=== PATIENT | female | born 1955 | race Caucasian/White ===

== ENCOUNTER → 2024-05-11 13:37 | Outpatient (REF) | payer MEDICARE, BC, SELFPAY | LOC: HWWDC 13:37 | PROVIDERS: ATTENDING PHYSICIAN Internal Medicine | DX: Z12.31 Encounter for screening mammogram for malignant neoplasm of breast (principal) | CPT/HCPCS: 77063; 77067 ==

== ENCOUNTER → 2025-07-12 09:03 | Outpatient (REF) | payer MEDICARE, BC, SELFPAY | LOC: HWWDC 09:03 | PROVIDERS: ATTENDING PHYSICIAN Internal Medicine | DX: Z12.31 Encounter for screening mammogram for malignant neoplasm of breast (principal) | CPT/HCPCS: 77063; 77067 ==

== ENCOUNTER 2025-08-17 20:45 | Emergency (ER) | payer MEDICARE, BC, SELFPAY ==
[2025-08-17 20:58] VITALS: BP 103/69
[2025-08-17 21:31] LABS: Urine Character Cloudy (Clear)
[2025-08-17 21:35] LABS: Hematocrit 41.6 % (37.0-47.0); Hemoglobin 13.1 g/dL (12.0-16.0); Mean Corp Hgb Conc. 31.5 g/dL (33.0-37.0); Mean Corpuscular Volume 89.7 fL (81.0-99.0); Nucleated Red Blood Cells % 0 %; Platelet Count 201 10^3/uL (130-400); Red Cell Dist. Width 13.3 % (11.5-14.5)
[2025-08-17 21:41] LABS: Urine Squamous Cell 0-2 /LPF (Few)
[2025-08-17 21:42] LABS: Urine White Cell 16-20 /HPF (0-5)
[2025-08-17 21:51] LABS: ALT (SGPT) 116 U/L (0-35); AST (SGOT) 191 U/L (14-36); Albumin 4.5 g/dl (3.5-5.0); Alkaline Phosphatase 88 U/L (38-126); Blood Urea Nitrogen 23 mg/dl (7-17); Calcium 9.8 mg/dl (8.4-10.2); Carbon Dioxide 28 mmol/L (22-30); Chloride 107 mmol/L (98-107); Glucose 115 mg/dl (70-99); Lipase 126 U/L (23-300); Potassium 4.4 mmol/L (3.5-5.1); Sodium 141 mmol/L (135-145); Total Protein 7.2 g/dl (6.3-8.2); eGFR 44.79
[2025-08-18 00:46] VITALS: BP 114/77
[2025-08-18 01:05] VITALS: BP 112/80
[2025-08-18] MEDS: NSS 1000 IV (01:07)
--- NOTE | 2025-08-18 01:20 | ED.GENMED ---
History of Present Illness
General
Chief Complaint: Abdominal Pain
Time Seen by Provider: 08/18/25 00:53
Nursing documentation reviewed up to this point in time: agreed with
History of Present Illness
History of Present Illness:
70-year-old female presents to the ER for evaluation of right-sided abdominal pain which started earlier today. She notes it has been intermittent in nature. It does not radiate to her back. Patient states that she felt strange earlier and was
weak and tripped while at a theater production in [place] this afternoon. She also states that she has been intermittently been feeling hot and cold throughout the day today. No vomiting. She reports decreased appetite since starting Ozempic
which she reports she was placed on due to decreased kidney function. She did not take any pain relievers. She does have a prior history of kidney stone but states that when she had pain from kidney stones in the past it felt very much like a
labor, not similar to today's discomfort at all. She denies any recent antibiotic usage. She denies dysuria. She reports that her urine is chronically dark if she admits that she does not drink enough water on a daily basis. She denies chest
pain. No cough or cold symptoms. No syncope. Patient has no pain at time of evaluation.
Past History
Past History
ED Past Medical History: None
ED Past Surgical History: None
Social History
Tobacco: Non-smoker
Review of Systems
Review of Systems
Allergies reviewed?: Yes
Phy Exam
Physical Exam
Physical Exam:
Patient is awake, alert, appears in no acute distress, head is NCAT, PERRL, EOMI mucous membranes moist, conjunctiva pink, heart regular rate and rhythm without murmurs or ectopy, lungs are clear to auscultation without wheezes rales or rhonchi, no
JVD, abdomen is soft and nontender on palpation, extremities without edema, GCS is 15
Course
Orders/Labs/Results
Orders:
Orders
08/17/25 21:01
Electrocardiogram (*1) Urgent
Reason for Study: Abdominal Pain
EKG- Treatment ONCE
08/17/25 21:25
Complete Blood Count/With Diff Urgent
Comprehensive Metabolic Panel Urgent
Lipase Urgent
Urinalysis Reflex To Culture Urgent
Date Specimen was Collected: 08/17/25
Time Specimen was Collected: 21:01
Urine Microscopic Reflex Cult Urgent
Urine Culture Urgent
DAVID Source: U
Specimen Description:
Date Specimen was Collected: 08/17/25
Time Specimen was Collected: 21:01
08/18/25 01:05
0.9% Sodium Chloride 1000 ml [Nss] 1,000 ml IV BOLUS
08/18/25 01:06
CT Abd/pel Without Iv Or Oral Urgent
Comment:
Reason For Exam: R abd pain, h/o stones
08/18/25 01:20
CefTRIAXone [Rocephin] 1,000 mg IV NOW STA
Abnormal Lab Results
08/17/25
21:25
WBC 14.1 H 10^3/uL
(4.8-10.8)
MCHC 31.5 L g/dL
(33.0-37.0)
Abs Immat Gran (auto) 0.1 H 10^3/uL
(0-0.05)
Absolute Neuts (auto) 11.1 H 10^3/uL
(1.4-6.5)
Absolute Monos (auto) 0.9 H 10^3/uL
(0.1-0.6)
Neutrophils % 78.2 H %
(42.2-75.2)
Lymphocytes % 12.7 L %
(20.5-51.1)
BUN 23 H mg/dl
(7-17)
Creatinine 1.3 H mg/dL
(0.6-1.0)
Glucose 115 H mg/dl
(70-99)
AST 191 H U/L
(14-36)
ALT 116 H U/L
(0-35)
Urine Ketones 1+ A
(Negative)
Urine Urobilinogen 2+ A
(Neg - 1+)
Leukocyte Esterase Rfl 3+ A
(Negative)
Urine RBC 11-15 A /HPF
(0-2)
Urine WBC (Reflex) 16-20 A /HPF
(0-5)
Urine Bacteria (Reflex) Many A
(Negative)
Urine Albumin (Reflex) 2+ A
(Neg - Trace)
08/17/25 21:25
08/17/25 21:25
White blood count elevated, mild elevation in creatinine compared to normal, no prior labs available for comparison. Urinalysis is concerning for acute infection
Vital Signs
Initial and Last Documented VS:
Initial Vital Signs
Temp Pulse Resp BP Pulse Ox
97.7 F 86 18 103/69 99
08/17/25 20:58 08/17/25 20:58 08/17/25 20:58 08/17/25 20:58 08/17/25 20:58
Last Documented Vital Signs
Temp Pulse Resp BP Pulse Ox
97.7 F 78 17 112/80 100
08/17/25 20:58 08/18/25 02:15 08/18/25 02:15 08/18/25 01:05 08/18/25 02:15
MDM/Problems Addressed
Differential Diagnosis Includes:
Differential diagnosis to consider but not limited to kidney stone, constipation, pyelonephritis, gastroenteritis, bowel obstruction along with other etiologies considered
Chronic conditions affecting care:
Chronic any disease, renal colic
*Radiology
Radiology exam reviewed: radiology read reviewed (Cholelithiasis)
*Pulse Oximetry
SaO2: 95
Oxygen Mode of Delivery: Room air
Patient hypoxic: no
*Critical Care Note
Total Time (30-74mins, 75-104mins- exclusive of procedures): Not Applicable
Update Note
Update Note:
Given prior history of kidney stone along with anterior abdominal pain and presence of UTI, will obtain CT of the abdomen pelvis for further evaluation. Patient agrees with plan at current. IV fluids ordered along with IV Rocephin for treatment of
UTI. Patient declining need for analgesia at the current time. Will reassess
0215: I reviewed all test results with patient. On reexamination, abdomen is still soft and nontender on palpation. I discussed with patient CT results showing gallstones. I discussed with her symptoms of acute cholecystitis and strict return
precautions. I discussed with patient ultimate need to have cholecystectomy. Patient states that she has been following a low-fat diet. She did lose 50 pounds in the last year which she correlates with the use of her Ozempic. I discussed with
patient need to increase oral fluids. I discussed with her use of antibiotics for treatment of urinary tract infection. We discussed strict return precautions. Patient expressed understanding of full discharge plan and feels comfortable leaving
the department. She has no questions at the current time.
ED Attending Note
-
Portions of this chart may have been created with voice recognition software.� Occasional wrong word or��sound alike� substitutions may have occurred due to the inherent limitations of voice recognition software.
Discharge Plan
Departure
Patient Disposition: Home (Routine Discharge)
Date of Disposition: 08/18/25
Time of Disposition: 02:21
Patient with high blood pressure during this ER visit?: No
Discharge Problem:
Biliary colic, Urinary tract infection
Instructions: Gallstones (DC), Urinary tract infection in adults - ED (DC)
Prescriptions:
New
cefpodoxime 100 mg tablet
200 mg PO BID Qty: 20 0RF
No Action
hydrocodone-acetaminophen 1 TABLET tablet
1 tab PO Q4HPRN PRN (Reason: pain) Qty: 12 0RF
Referrals:
Raad Cortez MD [Active, [facility]] - Next open appointment
Discharge Problem: Biliary colic
UNKNOWN - PT DOES,NOT KNOW [Family Provider]
Activity Restrictions/Additional Instructions:
Encourage fluids. Complete course of antibiotics as prescribed. Please return to the ER for any concerns including but not limited to severe pain, fever, inability to eat or drink. Please follow a low-fat diet until you are seen in follow-up with
surgery.
Interventions
Interventions:
*Risk Screen - Suicide Last Done: 08/17/25 20:58
*General Assessment Last Done: 08/18/25 01:18
*Neglect/Abuse Screening Last Done: 08/18/25 01:18
*ED- Fall Risk Assessment Last Done: 08/18/25 01:18
*ED COVID-19 Vaccine History Last Done: 08/18/25 01:18
*ED Influenza Vaccine History Last Done: 08/18/25 01:18
PC-[facility] Assessment Last Done: 08/18/25 00:00
Discharge Date and Time
Print Language: [id number]
[2025-08-18] MEDS: ROCEPHIN 1000 MG IV (01:29)
[2025-08-18 02:25] VITALS: BP 116/76
== END 2025-08-18 02:50 | disposition home or self-care (01) ==
LOC: EMR 20:45
PROVIDERS: Emergency Medicine; EMERGENCY PHYSICIAN Emergency Medicine
DX: K80.70 Calculus of gallbladder and bile duct without cholecystitis without obstruction (principal); N39.0 Urinary tract infection, site not specified; Z87.442 Personal history of urinary calculi
CPT/HCPCS: 99284; 96374; 96361; 74176; 80053; 81003; 81015; 83690; 85025; 87086; 93005

== ENCOUNTER 2025-10-18 06:17 | Day surgery (SDC) | payer MEDICARE, BC, SELFPAY ==
[2025-10-18] VITALS (10 sets, daily range): BP systolic 100–141; BP diastolic 61–83; BMI 30.9
[2025-10-18] MEDS: HEPARIN 5000 UNITS SC (11:15)
[2025-10-18] MEDS: TYLENOL 1000 MG PO (11:15)
[2025-10-18] MEDS: NORMOSOL-R/PLASMALYTE-A 1000 IV (11:15)
[2025-10-18] MEDS: IC GREEN 2.5 MG IV (11:16)
--- NOTE | 2025-10-18 13:04 | OR.RPT ---
Addendum entered and electronically signed by Carlos Cedeno MD 10/18/25 14:55:
Disregard this line, entered in error: An umbilical/incisional hernia was noted with bowel and omental contents. This was avoided.
Original Note:
Operative Report
Operative Report
Primary Surgeon: Pao
Assisting: Christin BLANCO
Pre-op Diagnosis: Biliary colic
Post-op Diagnosis: Chronic calculous cholecystitis
Procedure Performed: Robot assisted laparoscopic cholecystectomy with intraoperative near infra-red imaging of major extrahepatic bile ducts and intra-operative cholangiogram
Anesthesia Type: GETA
Specimen / Cultures: Gallbladder
Estimated Blood Loss: 5cc
Complications: None immediate
Operative Findings: Softly distended gallbladder with fibrotic posterior plane and mild wall thickening; cholangiogram with good flow into duodenum, good opacification of biliary tree and no filling defects
DOS: 10/18/25
Indications: This 70F developed right upper quadrant/epigastric pain and on workup was found to have cholelithiasis, with elevated liver enzymes and normal sized ducts. Laparoscopic cholecystectomy with robotic assist and with cholangiogram was
elected.
Description of procedure: The patient was placed on the operating table in the supine position. General anesthesia was induced. A time-out was completed verifying correct patient, procedure, site, positioning, and special equipment prior to
beginning this procedure. An orogastric tube was placed. The abdomen was prepped and draped in the usual sterile fashion. A stab incision was made in left upper quadrant and the Veress needle was inserted. Proper position was confirmed by aspiration
and saline meniscus test. The abdomen was insufflated with carbon dioxide to a pressure of 12 mmHg. The patient tolerated insufflation well.
An 8mm optical trocar was then inserted in the left upper quadrant. The laparoscope was inserted and the abdomen inspected. No injuries from initial trocar placement or Veress needle insertion were noted. An umbilical/incisional hernia was noted
with bowel and omental contents. This was avoided. Additional 8mm trocars were then inserted in the following locations: above the umbilicus, right mid clavicular line at the level of the umbilicus and 6cm lateral to this on the right. The abdomen
was inspected and no abnormalities were found. The table was placed in the reverse Trendelenburg position with the right side up. Filmy omental adhesions to the abdominal wall were taken down carefully. The dome of the gallbladder was grasped with
an atraumatic grasper and retracted over the dome of the liver. The infundibulum was grasped with an atraumatic grasper and retracted toward the right lower quadrant. This maneuver exposed Calot�s triangle. The cystic duct and cystic artery were
dissected out until the only two structures entering the gallbladder were these two structures. The common duct was protected. ICG was used to visualize the cystic and common ducts. The common duct was protected.
A darron was made in the cystic duct and a cholangiogram catheter was threaded through the abdominal wall and into the duct and secured with 2-0 silk. A cholangiogram was obtained showing good flow into duodenum, good opacification fo biliary tree
without filing defects. The catheter was withdrawn.
The cystic artery was controlled with bipolar and divided. The cystic duct was doubly clipped and divided. The gallbladder was dissected free from the liver bed. The posterior plane was fibrotic and the wall was mildly thickened. Hemostasis was
assured and the gallbladder and contained stones were removed using an endoscopic retrieval bag placed through the umbilical port. The gallbladder was passed off the table as a specimen. There was no evidence of bleeding from the gallbladder fossa
or cystic artery or leakage of the bile from the cystic duct stump. The umbilical trocar site was closed at the fascial level laparoscopically with 2-0 PDS. Secondary trocars were removed under direct vision and noted to be hemostatic. The
laparoscope was withdrawn and the umbilical trocar removed. The abdomen was allowed to collapse. The skin was closed with subcuticular sutures of 4-0 monocryl and topical skin adhesive. The orogastric tube was removed.
The patient tolerated the procedure well and was taken to the postanesthesia care unit in stable condition.
The assistance of Christin BLANCO was required due to the complexity of the procedure. During the procedure she assisted with cholangiogram, retraction, resection, and closure of the wound.
[2025-10-18] MEDS: SUBLIMAZE 50 MCG IV (14:18)
== END 2025-10-18 16:34 | disposition home or self-care (01) ==
LOC: SDS 06:17
PROVIDERS: ATTENDING PHYSICIAN Surgery
DX: K80.10 Calculus of gallbladder with chronic cholecystitis without obstruction (principal); R74.01 Elevation of levels of liver transaminase levels
CPT/HCPCS: 47563; 74300; 76000; 88304; A4300